=== PATIENT | male | born 1990 | race Caucasian/White ===

== ENCOUNTER 2024-03-02 22:05 | Emergency (ER) | payer SELFPAY ==
[2024-03-02 22:09] VITALS: BP 127/69; PULSE 92; O2SAT 100
[2024-03-02 22:13] VITALS: BP 127/69; PULSE 87; RESP 18; TEMP 36.7; O2SAT 100; BMI 24.2
--- NOTE | 2024-03-02 22:18 | ED.ABDPAIN ---
HPI - Abdominal Pain General Chief Complaint: Abdominal Pain Stated Complaint: abd pain Time Seen by Provider: 03/02/24 22:07 Source: patient Mode of arrival: Ambulatory History of Present Illness HPI narrative: 34-year-old male with history of amphetamine use presents by private vehicle from home for abdominal pain. Patient history mostly obtained from mother at bedside, as patient was currently sleeping and is not interested in waking to provide history. Per mother patient had abdominal pain earlier in the day. He came to her house and was on the couch moaning and clutching his stomach. Initially patient went to [facility] emergency department, however due to wait times he left the waiting room without being seen by a provider. Pain is generalized, associated with nausea. Mother is concerned that there may be an ulcer or appendicitis. Patient briefly wakes up to say that his pain is mostly located on the right-hand side, but we will not rollover so that I can perform a complete abdominal exam. Related Data Previous Rx's Medication Instructions Recorded metoclopramide HCl 10 mg tablet 10 mg PO Q6H PRN nausea and 03/02/24 vomiting #30 tabs Allergies Allergy/AdvReac Type Severity Reaction Status Date / Time No Known Drug Allergies Allergy Verified 03/02/24 22:13 Review of Systems Review of Systems Narrative: See HPI Patient History Substance Use Type: amphetamines and methamphetamine Exam Initial Vital Signs Initial Vital Signs: Vital Signs Pulse Rate 92 H 03/02/24 22:09 Blood Pressure 127/69 03/02/24 22:09 Pulse Oximetry 100 03/02/24 22:09 Const: Eyes closed, responds to voice, appears older than stated age Cardiac: regular rate, regular rhythm RESP: unlabored, clear bilaterally, no wheezing GI: Soft, right-sided tenderness to deep palpation Skin: Warm, Dry, intact, no rashes Neuro: CN II-XII grossly intact, moves all extremities Course Orders Ordered: ED Orders 03/02/24 22:17 CT abdomen pelvis w con Stat 03/02/24 22:36 CBC Auto Diff [Complete Blood Count AUTO DIFF] Stat CMP [Comprehensive Metabolic Panel] Stat Lactate (Lactic Acid) Stat Discontinued Medications Sodium Chloride (Normal Saline 0.9%) 1,000 mls @ 1,000 mls/hr IV BOLUS ONE Stop: 03/02/24 23:17 Last Infusion: 03/02/24 23:51 Dose: Infused Documented By: Admin: 03/02/24 23:00 Dose: 1,000 mls/hr Documented By: Ketorolac Tromethamine (Ketorolac 30 Mg/Ml Vial) 15 mg IV NOW ONE Stop: 03/02/24 22:18 Last Admin: 03/02/24 23:00 Dose: 15 mg Documented By: Ondansetron HCl (Ondansetron 4 Mg/2 Ml Inj) 4 mg IV NOW ONE Stop: 03/02/24 22:18 Last Admin: 03/02/24 23:00 Dose: 4 mg Documented By: Vital Signs Vital signs: Vital Signs - 8 hr 03/02/24 22:09 03/02/24 22:09 03/02/24 22:13 Temperature 98.1 F Pulse Rate 92 H 87 Respiratory Rate 18 Blood Pressure 127/69 127/69 Pulse Oximetry 100 100 Oxygen Delivery Method Room Air 03/02/24 22:30 03/02/24 22:30 03/02/24 22:56 Temperature Pulse Rate 93 H Respiratory Rate Blood Pressure 124/55 L 132/77 Pulse Oximetry 100 Oxygen Delivery Method 03/02/24 22:56 03/02/24 23:00 03/02/24 23:00 Temperature Pulse Rate 85 82 Respiratory Rate Blood Pressure 131/76 Pulse Oximetry 99 98 Oxygen Delivery Method 03/02/24 23:30 03/02/24 23:30 03/03/24 00:00 Temperature Pulse Rate 89 Respiratory Rate Blood Pressure 113/55 L 119/68 Pulse Oximetry 100 Oxygen Delivery Method Room Air 03/03/24 00:00 Temperature Pulse Rate 86 Respiratory Rate Blood Pressure Pulse Oximetry 100 Oxygen Delivery Method MDM - Abdominal Pain Differential Diagnosis Differential diagnosis: Likely abdominal pain, acute appendicitis and calculus of kidney Lab Data 03/02/24 22:36 03/02/24 22:36 Labs: Lab Results 03/02/24 Range/Units 22:36 WBC 8.6 (4.5-11.0) X10^3/uL RBC 5.44 (4.5-5.9) X10^6/uL Hgb 15.9 (13.5-17.5) g/dL Hct 46.1 (41-53) % MCV 84.7 (80-100) fL MCH 29.1 (26-34) PG MCHC 34.4 (30-36) % RDW 13.6 (11.6-14.8) % Plt Count 283 (150-400) X10^3/uL Neut % (Auto) 90.5 H (50-75) % Lymph % (Auto) 3.4 L (25-40) % Fleming % (Auto) 5.8 (3-14) % Eos % (Auto) 0.1 L (2-4) % Baso % (Auto) 0.2 (0-2) % Neut # (Auto) 7800 H (7560-5330) /uL Lymph # (Auto) 300 L (2664-1979) /uL Fleming # (Auto) 500 (0-900) /uL Eos # (Auto) 0 (0-450) /uL Baso # (Auto) 0 (0-100) /uL Sodium 137 (137-145) mmol/L Potassium 4.4 (3.4-5.1) mmol/L Chloride 102 (98-107) mmol/L Carbon Dioxide 29 (22-32) mmol/L BUN 27 H (9-20) mg/dL Creatinine 0.94 (0.66-1.25) mg/dL Estimated GFR > 60 (>60) mL/min BUN/Creatinine Ratio 28.7 H (6-22) Glucose 112 H (70-100) mg/dL Lactate 2.1 (0.7-2.1) mmol/L Calcium 9.0 (8.4-10.2) mg/dL Total Bilirubin 1.0 (0.2-1.3) mg/dL AST 27 (17-59) IU/L ALT 24 (<50) IU/L Alkaline Phosphatase 67 (38-126) U/L Total Protein 7.7 (6.3-8.2) g/dL Albumin 4.6 (3.5-5.0) g/dL Globulin 3.1 (1.7-4.1) g/dL Albumin/Globulin Ratio 1.5 (1.0-2.8) Imaging Data CT scan - abdomen/pelvis: My Impression: PROCEDURE: CT ABDOMEN PELVIS W CON INDICATIONS: RLQ PAIN TECHNIQUE: After the administration of intravenous contrast, axial sections acquired from the lung bases to the pubic symphysis. Coronal and sagittal reformats were performed. For radiation dose reduction, the following was used: automated exposure control, adjustment of mA and/or kV according to patient size. COMPARISON: None. FINDINGS: Image quality: Diagnostic. Lower Chest: No significant findings. ABDOMEN: Liver: No solid mass. Gallbladder: No radiopaque gallstones or wall thickening. Biliary ducts: No biliary dilation. Pancreas: No ductal dilation. Spleen: Size is within normal limits. Adrenal Glands: No adrenal nodules. Kidneys and Ureters: No hydronephrosis. No solid mass. No complex renal cystic lesion which requires follow up. Stomach and Bowel: Normal colonic caliber, without significant wall thickening. The stomach is fluid filled, chronicity uncertain. Several small bowel loops are mildly prominent over the lower abdomen. A definite obstructive pattern is not found. Peritoneum: No abnormal intraperitoneal fluid. No free air. Ventral Wall: No significant ventral hernia. Abdominal Nodes: No retroperitoneal or mesenteric adenopathy by size criteria. Vessels: Aorta and inferior vena cava are normal in size. PELVIS: Pelvic Organs: Unremarkable. Bladder: No bladder wall thickening, accounting for underdistention. Pelvic Nodes: No enlarged lymph nodes. Miscellaneous: No inguinal hernias are seen. A normal or abnormal appendix could not be located but there is no secondary CT evidence of hidden appendicitis. Bones: No aggressive osseous abnormality. IMPRESSION: Non-specific findings, mild prominence of several small bowel loops within the lower abdomen. Obstructive etiology is not currently suspected. Somewhat prominent degree of fluid within the stomach. Chronicity uncertain. No evidence of appendicitis. Dictated by: Mario Patel M.D. on 03/02/2024 at 23:11 Approved by: Mario Patel M.D. on 03/02/2024 at 23:14 MDM Narrative Medical decision making narrative: Generalized vs R sided abdominal pain. Abdomen is soft, patient grimaces when right abdomen is palpated. Hemodynamically stable. Laboratory work, CT imaging ordered. Toradol, IV fluids, and antiemetics ordered. Laboratory work is reviewed, WBC count 8.6, hemoglobin 15.9, platelets 283, sodium 137, potassium 4.4, creatinine 0.94, normal liver enzymes. Lactic acid 2.1. CT of the abdomen and pelvis shows mild gastric distention, mild dilated loops of small bowel, however obstruction not suspected at this time. Patient reported feeling better with the given medications. Able to tolerate p.o. fluids without pain or emesis. Lab and imaging findings counseled with the patient and mother at bedside. Due to the mildly distended stomach as well as dilated loops of bowel Reglan sent to pharmacy for pro-motile effects. ED return precautions discussed at bedside. Discharge Plan Departure Patient Disposition: Home Clinical Impression: Nausea & vomiting Qualifiers: Vomiting type: unspecified Qualified Code(s): R11.2 - Nausea with vomiting, unspecified Abdominal pain Qualifiers: Abdominal location: generalized Qualified Code(s): R10.84 - Generalized abdominal pain Instructions: DI for Abdominal Pain-Adult Activity Restrictions/Additional Instructions: Your laboratory work and CT imaging today did not show any evidence of appendicitis. You did have slightly enlarged small-bowel and stomach seen today on CT scan, however this is nonspecific and there was no evidence of an obstruction at this time. There are no prior imaging studies available for comparison. Take the prescribed antinausea medications and follow a light diet for the next several days. Take Tylenol and ibuprofen as needed for discomfort. Prescriptions: New metoclopramide HCl 10 mg tablet 10 mg PO Q6H PRN (Reason: nausea and vomiting) Qty: 30 0RF Stand Alone Forms: Patient Portal/API
[2024-03-02 22:30] VITALS: BP 124/55; PULSE 93; O2SAT 100
[2024-03-02 22:45] LABS: Add Manual Diff / Slide Review NO; Basophils Absolute Auto 0 /uL (0-100); Basophils Percent Auto 0.2 % (0-2); Eosinophils Absolute Auto 0 /uL (0-450); Eosinophils Percent Auto 0.1 % (2-4); Hematocrit 46.1 % (41-53); Hemoglobin 15.9 g/dL (13.5-17.5); Lymphocytes Absolute Auto 300 /uL (1100-4500); Lymphocytes Percent Auto 3.4 % (25-40); Mean Corpuscular HGB Conc 34.4 % (30-36); Mean Corpuscular Hemoglobin 29.1 PG (26-34); Mean Corpuscular Volume 84.7 fL (80-100); Monocytes Absolute Auto 500 /uL (0-900); Monocytes Percent Auto 5.8 % (3-14); Neutrophils Absolute Auto 7800 /uL (1500-7000); Neutrophils Percent Auto 90.5 % (50-75); Platelet Count 283 X10^3/uL (150-400); Red Blood Cell Count 5.44 X10^6/uL (4.5-5.9); Red Cell Distribution Width 13.6 % (11.6-14.8); White Blood Cell Count 8.6 X10^3/uL (4.5-11.0)
[2024-03-02 22:56] VITALS: BP 132/77; PULSE 85; O2SAT 99
[2024-03-02 22:59] LABS: Alanine Aminotransferase 24 IU/L (<50); Albumin 4.6 g/dL (3.5-5.0); Albumin Globulin Ratio 1.5 (1.0-2.8); Alkaline Phosphatase 67 U/L (38-126); Aspartate Aminotransferase 27 IU/L (17-59); BUN Creatinine Ratio 28.7 (6-22); Blood Urea Nitrogen 27 mg/dL (9-20); Carbon Dioxide 29 mmol/L (22-32); Chloride 102 mmol/L (98-107); Estimated Glomerular Filt Rate > 60 mL/min (>60); Globulin 3.1 g/dL (1.7-4.1); Glucose 112 mg/dL (70-100); HEMOLYSIS < 15 (0-50); Potassium 4.4 mmol/L (3.4-5.1); Sodium 137 mmol/L (137-145); Total Protein 7.7 g/dL (6.3-8.2)
[2024-03-02 23:00] VITALS: BP 131/76; PULSE 82; O2SAT 98
[2024-03-02 23:00] LABS: Lactate (Lactic Acid) 2.1 mmol/L (0.7-2.1)
[2024-03-02] MEDS: KETOROLAC 30 MG/ML VIAL 15 MG IV (23:00)
[2024-03-02] MEDS: ONDANSETRON 4 MG/2 ML INJ IV (23:00)
[2024-03-02] MEDS: SODIUM CHLORIDE 0.9% 1,000 ML 1000 ML IV (23:00)
[2024-03-02 23:30] VITALS: BP 113/55; PULSE 89; O2SAT 100
--- NOTE | 2024-03-02 23:51 | PC.NURSE ---
Pt given 1 can mary mist and 8 oz of water. Mother states she will assist pt to drink sips to see if he can hold liquids down.
[2024-03-03] VITALS: BP 119/68; PULSE 86; O2SAT 100
[2024-03-03 00:17] LABS: Reflexed Lactate in 2 Hours Y
== END 2024-03-03 00:08 | disposition home or self-care (01) ==
PROVIDERS: Emergency Provider Emergency Medicine
DX: R10.84 Generalized abdominal pain (principal); R11.2 Nausea with vomiting, unspecified
CPT/HCPCS: 36415; 74177; 80053; 83605; 85025; 96374; 96375; 99284; J1885; J2405; Q9967